=== PATIENT | male | born 1960 | race Caucasian/White ===

== ENCOUNTER 2023-01-15 12:02 | Outpatient (CLI) | payer MEDICAID, SELFPAY | END 2023-01-15 12:03 | disposition home or self-care (01) | LOC: OP CLINIC 12:05 | PROVIDERS: PCP Family Medicine; Visit Provider Internal Medicine Gastroenterology | DX: Z12.11 Encounter for screening for malignant neoplasm of colon (principal); Z86.010 Personal history of colon polyps | CPT/HCPCS: 45378; A9270; J2250; J3010 ==